=== PATIENT | female | born 1980 | race Caucasian/White ===

== ENCOUNTER 2019-03-17 05:06 | Emergency (ER) | payer BC ==
--- OUTSIDE RECORDS SUMMARY | 2019-03-17 05:08 | XMS REPORT ---
:1980 Author Organization eClinicalWorks Care Team Providers Name Role Phone Ryan Ramirez Provider Role Unavailable Allergies, Adverse Reactions, Alerts Substance Reaction Event Type N.K.D.A. Info Not Available Non Drug Allergy Problems Problem Type Condition Code Onset Dates Condition Status Assessment Left lateral epicondylitis M77.12 Active Problem Pain in joint of left elbow M25.522 Active Problem Seasonal allergic rhinitis, J30.2 Active unspecified trigger Problem Left lateral epicondylitis M77.12 Active Assessment Pain in joint of left elbow M25.522 Active Problem Anxiety F41.9 Active Problem Depression, unspecified depression F32.9 Active type Medications Medication Code Code Instructions Start End Status Dosage System Date Date BuPROPion HCl [facility] 48362761048 150 MG Oral Active not ER (XL) defined Fluoxetine NDC 0 Active not defined Fluoxetine HCl [facility] 06728494284 40 MG Oral Active not defined PredniSONE [facility] 01577624813 20 MG Orally BID Active 1 tablet Augmentin [facility] 47880529396 875-125 MG Active 1 tablet Orally every 12 hrs Metformin HCl [facility] 39685691066 500 MG Oral Active not defined Results No Known Results Summary Purpose eClinicalWorks Submission
[2019-03-17] MEDS ORDERED: dexAMETHasone 10 MG/ML VIAL ONE (06:25)
[2019-03-17] MEDS ORDERED: KETOROLAC 30 MG/ML INJ ONE (06:26)
[2019-03-17] MEDS ORDERED: NA CHLORIDE 0.9% 1,000 ML ONE (06:26)
[2019-03-17] MEDS ORDERED: MORPHINE 4 MG/ML SYR ONE (06:26)
[2019-03-17] MEDS ORDERED: ONDANSETRON 4 MG/2 ML VIAL ONE (06:28)
[2019-03-17 07:02] LABS: Absolute Lymphocytes (CBC) 2.6 K/uL (0.7-4.9); Basophils % 0.8 % (0-1.3); Hematocrit 39.9 % (36.0-45.0); Lymphocytes % 40.4 % (15.3-44.8); MPV 8.1 fL (7.6-11.3); RBC Red Blood Cell Count 4.48 M/uL (3.86-4.86)
[2019-03-17 07:19] LABS: ALT/SGPT 28 U/L (12-78); AST/SGOT 11 U/L (15-37); Albumin 4.1 g/dL (3.4-5.0); Alkaline Phosphatase 85 U/L (45-117); BUN Blood Urea Nitrogen 10 mg/dL (7-18); Bicarbonate 28 mmol/L (21-32); Bilirubin Total 0.3 mg/dL (0.2-1.0); Glucose Level 100 mg/dL (74-106); Potassium 3.8 mmol/L (3.5-5.1); Protein, Total 7.5 g/dL (6.4-8.2); Sodium Level 138 mmol/L (136-145); Troponin (Emerg Dept Use Only) < 0.02 ng/mL (0.0-0.045)
--- NOTE | 2019-03-17 07:27 | ER ---
Nurse's Notes [facility] Name: Mary Jo Benitez Age: 39 yrs Sex: Female : 1980 Arrival Date: 03/17/2019 Time: 05:07 Bed 6 Private MD: Diagnosis: Radiculopathy, cervical region;Type 2 diabetes mellitus Presentation: 03/17 05:24 Presenting complaint: Patient states: she woke up about 0130 this arm with pain in the aa1 right side of her neck that radiates down her R shoulder. States, "I can't even move my head because it hurts so bad.". Transition of care: patient was not received from another setting of care. Onset of symptoms was March 17, 2019 at 01:30. Risk Assessment: Do you want to hurt yourself or someone else? Patient reports no desire to harm self or others. Initial Sepsis Screen: Does the patient meet any 2 criteria? No. Patient's initial sepsis screen is negative. Does the patient have a suspected source of infection? No. Patient's initial sepsis screen is negative. Care prior to arrival: None. 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 - Social history:: Smoking status: Patient/guardian denies using tobacco. - Ebola Screening: : No symptoms or risks identified at this time. - Family history:: not pertinent. Screenin:28 Abuse screen: Denies threats or abuse. Denies injuries from another. Nutritional aa1 screening: No deficits noted. Tuberculosis screening: No symptoms or risk factors identified. Fall Risk None identified. Assessment: 05:28 General: Appears in no apparent distress. comfortable, Behavior is calm, cooperative, aa1 appropriate for age. Pain: Complains of pain in right side of neck Pain currently is 10 out of 10 on a pain scale. Neuro: Level of Consciousness is awake, alert, obeys commands, Oriented to person, place, time, situation, Moves all extremities. Full function Gait is steady. Respiratory: Airway is patent Respiratory effort is even, unlabored, Respiratory pattern is regular, symmetrical. GI: No signs and/or symptoms were reported involving the gastrointestinal system. : No signs and/or symptoms were reported regarding the genitourinary system. EENT: No signs and/or symptoms were reported regarding the EENT system. Derm: Skin is intact, is healthy with good turgor, Skin is pink, warm \\T\\ dry. Musculoskeletal: Circulation, motion, and sensation intact. Capillary refill < 3 seconds. 07:21 Reassessment: Patient and/or family updated on plan of care and expected duration. Pain vc level reassessed. Patient is alert, oriented x 3, equal unlabored respirations, skin warm/dry/pink. Patient states symptoms have improved. at bedside. Provider in the room at this time.. 17:33 Reassessment:. vc Vital Signs: 05:27 BP 137 / 99; Pulse 89; Resp 16; Temp 98.7; Pulse Ox 99% on R/A; Weight 90.72 kg; Height aa1 5 ft. 1 in. (154.94 cm); Pain 10/10; 06:20 BP 134 / 94; Pulse 77; Resp 16; Pulse Ox 98% on R/A; aa1 07:15 BP 127 / 78; Pulse 62; Resp 16; Pulse Ox 100% on R/A; Pain 0/10; vc 05:27 Body Mass Index 37.79 (90.72 kg, 154.94 cm) aa1 ED Course: 05:07 Patient arrived in ED. ds1 05:19 Mathieu Reardon MD is Attending Physician. buddy 05:24 Shilpa Villatoro, MATEO is Primary Nurse. aa1 05:26 Triage completed. aa1 05:27 Arm band placed on right wrist. aa1 05:28 Patient has correct armband on for positive identification. Bed in low position. Call aa1 light in reach. Pulse ox on. NIBP on. 06:31 CT C Spine In Process Unspecified. EDMS 06:40 Initial lab(s) drawn, by me, sent to lab. EKG done, by ED staff, reviewed by Mathieu Reardon MD. Inserted saline lock: 20 gauge in right antecubital area, using aseptic technique. Blood collected. 06:52 Kenneth Rondon [facility]-C [facility]. la1 06:57 Report given to MATEO Pond. aa1 07:01 Chest Single View XRAY In Process Unspecified. EDMS 07:20 Inserted saline lock: 22 gauge in left hand, using aseptic technique. vc 07:25 Magdaleno Mccoy MD is Referral Physician. la1 07:25 Anthony Liu MD is Referral Physician. la1 07:45 No provider procedures requiring assistance completed. IV discontinued, intact, vc bleeding controlled, No redness/swelling at site. Pressure dressing applied. 07:50 Primary Nurse role handed off by Shilpa Villatoro RN vc 07:50 Eli Ac RN is Primary Nurse. vc Administered Medications: 06:40 Drug: NS 0.9% 1000 ml Route: IV; Rate: 1 bolus; Site: right antecubital; aa1 06:40 Drug: Zofran 4 mg Route: IVP; Site: right antecubital; aa1 07:22 Follow up: Response: No adverse reaction vc 06:42 Drug: TORadol 30 mg Route: IVP; Site: right antecubital; aa1 07:23 Follow up: Response: No adverse reaction; Pain is decreased vc 06:43 Drug: Decadron - Dexamethasone 10 mg Route: IVP; Site: right antecubital; aa1 07:24 Follow up: Response: No adverse reaction; Pain is decreased vc 06:44 Drug: morphine 4 mg Route: IVP; Site: right antecubital; aa1 07:23 Follow up: Response: No adverse reaction; Pain is decreased vc Outcome: 07:25 Discharge ordered by . la1 07:48 Discharged to home ambulatory, with significant other. vc 07:48 Condition: improved 07:48 Discharge instructions given to patient, significant other, Instructed on discharge instructions, follow up and referral plans. no drinking with medication, no driving heavy equipment, medication usage, Demonstrated understanding of instructions, follow-up care, medications, Prescriptions given X 4. 07:50 Patient left the ED. vc Signatures: Dispatcher [employer] ED[facility] Shilpa Villatoro RN RN aa1 Anderson, Corey, MD MD cha Manzano, Radha ds1 Kenneth Rondon, PRODUCT SAFETY ASSOCIATE-C PRODUCT SAFETY ASSOCIATE-Cla1 Eli Ac, RN RN vc
--- NOTE | 2019-03-17 07:27 | EDPHYS ---
Physician Documentation [facility] Name: Mary Jo Benitez Age: 39 yrs Sex: Female : 1980 Arrival Date: 03/17/2019 Time: 05:07 Bed 6 Private MD: ENZO Physician Mathieu Reardon HPI: 03/17 06:16 This 39 yrs old Female presents to ER via Ambulatory with complaints of buddy Neck/Arm Pain. 06:16 The patient or guardian complains of pain. buddy 06:17 The patient or guardian complains of decreased range of motion, pain. The complaints buddy affect the right bicep, dorsal aspect of right forearm, right tricep and palmar aspect of right forearm. Context: The problem was sustained. Onset: The symptoms/episode began/occurred just prior to arrival, this morning. Treatment prior to arrival includes: no previous treatment. Modifying factors: The symptoms are alleviated by remaining still, the symptoms are aggravated by movement. Associated signs and symptoms: The patient has no apparent associated signs or symptoms. Severity of symptoms: At their worst the symptoms were mild, moderate, in the emergency department the symptoms are unchanged. The patient has not experienced similar symptoms in the past. 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 - Social history:: Smoking status: Patient/guardian denies using tobacco. - Ebola Screening: : No symptoms or risks identified at this time. - Family history:: not pertinent. ROS: 06:17 Constitutional: Negative for fever, chills, and weight loss, Eyes: Negative for injury, buddy pain, redness, and discharge, ENT: Negative for injury, pain, and discharge, Cardiovascular: Negative for chest pain, palpitations, and edema, Respiratory: Negative for shortness of breath, cough, wheezing, and pleuritic chest pain, Abdomen/GI: Negative for abdominal pain, nausea, vomiting, diarrhea, and constipation, Back: Negative for injury and pain, : Negative for injury, bleeding, discharge, and swelling, MS/Extremity: Negative for injury and deformity, Skin: Negative for injury, rash, and discoloration, Neuro: Negative for headache, weakness, numbness, tingling, and seizure, Psych: Negative for depression, anxiety, suicide ideation, homicidal ideation, and hallucinations, Allergy/Immunology: Negative for hives, rash, and allergies, Endocrine: Negative for neck swelling, polydipsia, polyuria, polyphagia, and marked weight changes, Hematologic/Lymphatic: Negative for swollen nodes, abnormal bleeding, and unusual bruising. 06:17 Neck: Positive for pain with movement, pain at rest. Exam: 06:17 Constitutional: This is a well developed, well nourished patient who is awake, alert, buddy and in no acute distress. Head/Face: Normocephalic, atraumatic. Eyes: Pupils equal round and reactive to light, extra-ocular motions intact. Lids and lashes normal. Conjunctiva and sclera are non-icteric and not injected. Cornea within normal limits. Periorbital areas with no swelling, redness, or edema. ENT: Nares patent. No nasal discharge, no septal abnormalities noted. Tympanic membranes are normal and external auditory canals are clear. Oropharynx with no redness, swelling, or masses, exudates, or evidence of obstruction, uvula midline. Mucous membranes moist. Chest/axilla: Normal chest wall appearance and motion. Nontender with no deformity. No lesions are appreciated. Cardiovascular: Regular rate and rhythm with a normal S1 and S2. No gallops, murmurs, or rubs. Normal PMI, no JVD. No pulse deficits. Respiratory: Lungs have equal breath sounds bilaterally, clear to auscultation and percussion. No rales, rhonchi or wheezes noted. No increased work of breathing, no retractions or nasal flaring. Abdomen/GI: Soft, non-tender, with normal bowel sounds. No distension or tympany. No guarding or rebound. No evidence of tenderness throughout. Back: No spinal tenderness. No costovertebral tenderness. Full range of motion. Female : Normal external genitalia. Skin: Warm, dry with normal turgor. Normal color with no rashes, no lesions, and no evidence of cellulitis. MS/ Extremity: Pulses equal, no cyanosis. Neurovascular intact. Full, normal range of motion. Neuro: Awake and alert, GCS 15, oriented to person, place, time, and situation. Cranial nerves II-XII grossly intact. Motor strength 5/5 in all extremities. Sensory grossly intact. Cerebellar exam normal. Normal gait. Psych: Awake, alert, with orientation to person, place and time. Behavior, mood, and affect are within normal limits. 06:17 Neck: External neck: is normal, no acute changes, C-spine: appears grossly normal, no acute changes, Thyroid: appears normal, no acute changes, Trachea: is midline with no obvious abnormalities, no acute changes, ROM/movement: is normal, no acute changes, Lymph nodes: no appreciated lymphadenopathy. Vital Signs: 05:27 BP 137 / 99; Pulse 89; Resp 16; Temp 98.7; Pulse Ox 99% on R/A; Weight 90.72 kg; Height aa1 5 ft. 1 in. (154.94 cm); Pain 10/10; 06:20 BP 134 / 94; Pulse 77; Resp 16; Pulse Ox 98% on R/A; aa1 07:15 BP 127 / 78; Pulse 62; Resp 16; Pulse Ox 100% on R/A; Pain 0/10; vc 05:27 Body Mass Index 37.79 (90.72 kg, 154.94 cm) aa1 MDM: 05:19 Patient medically screened. [facility] 06:23 Data reviewed: vital signs, nurses notes, lab test result(s), EKG, radiologic studies, [facility] CT scan, plain films. 03/17 06:16 Order name: CBC with Diff; Complete Time: 07:15 [facility] 03/17 06:16 Order name: Comprehensive Metabolic Panel; Complete Time: 07:21 [facility] 03/17 06:16 Order name: CT C Spine [facility] 03/17 06:16 Order name: Chest Single View XRAY [facility] 03/17 06:16 Order name: Troponin (emerg Dept Use Only); Complete Time: 07:21 [facility] 03/17 06:16 Order name: EKG; Complete Time: 06:16 [facility] 03/17 06:16 Order name: EKG - Nurse/Tech; Complete Time: 06:50 buddy Administered Medications: 06:40 Drug: NS 0.9% 1000 ml Route: IV; Rate: 1 bolus; Site: right antecubital; aa1 06:40 Drug: Zofran 4 mg Route: IVP; Site: right antecubital; aa1 07:22 Follow up: Response: No adverse reaction vc 06:42 Drug: TORadol 30 mg Route: IVP; Site: right antecubital; aa1 07:23 Follow up: Response: No adverse reaction; Pain is decreased vc 06:43 Drug: Decadron - Dexamethasone 10 mg Route: IVP; Site: right antecubital; aa1 07:24 Follow up: Response: No adverse reaction; Pain is decreased vc 06:44 Drug: morphine 4 mg Route: IVP; Site: right antecubital; aa1 07:23 Follow up: Response: No adverse reaction; Pain is decreased vc Disposition: 03/17/19 07:25 Discharged to Home. Impression: Radiculopathy, cervical region, Type 2 diabetes mellitus. - Condition is Stable. - Discharge Instructions: Cervical Radiculopathy, Type 2 Diabetes Mellitus, Diagnosis, Adult, Type 2 Diabetes Mellitus, Diagnosis, Adult, [id number], Cervical Radiculopathy, [id number], Radicular Pain. - Prescriptions for dexamethasone 2 mg Oral tablet - take 1 tablet by ORAL route 2 times per day; 10 tablet. Ibuprofen 600 mg Oral Tablet - take 1 tablet by ORAL route every 6 hours As needed take with food; 21 tablet. Tylenol- Codeine #3 300-30 mg Oral Tablet - take 2 tablet by ORAL route every 6 hours As needed; 30 tablet. Valium 5 mg Oral Tablet - take 1 tablet by ORAL route every 8 hours As needed; 20 tablet. - Family Work Release, Medication Reconciliation Form, Thank You Letter, Antibiotic Education, Prescription Opioid Use, Work release form form. - Follow up: Private Physician; When: 2 - 3 days; Reason: Recheck today's complaints, Continuance of care, Re-evaluation by your physician. Follow up: Magdaleno Mccoy; When: 2 - 3 days; Reason: Recheck today's complaints, Re-evaluation by your physician. Follow up: Anthony Liu; When: 2 - 3 days; Reason: Recheck today's complaints, Re-evaluation by your physician. - Problem is new. - Symptoms have improved. Signatures: Dispatcher [employer] Shilpa Coronel, RN RN aa1 Mathieu Reardon MD MD cha Attema, Lee, ALARM INSTALLATION TECHNICIAN-C ALARM INSTALLATION TECHNICIAN-Cla1 Eli Ac, MATEO RN vc Corrections: (The following items were deleted from the chart) 07:50 07:25 03/17/2019 07:25 Discharged to Home. Impression: Radiculopathy, cervical region; vc Type 2 diabetes mellitus. Condition is Stable. Discharge Instructions: Cervical Radiculopathy, Type 2 Diabetes Mellitus, Diagnosis, Adult, Type 2 Diabetes Mellitus, Diagnosis, Adult, [id number], Cervical Radiculopathy, [id number], Radicular Pain. Prescriptions for dexamethasone 2 mg Oral tablet - take 1 tablet by ORAL route 2 times per day; 10 tablet, Ibuprofen 600 mg Oral Tablet - take 1 tablet by ORAL route every 6 hours As needed take with food; 21 tablet, Tylenol-Codeine #3 300-30 mg Oral Tablet - take 2 tablet by ORAL route every 6 hours As needed; 30 tablet, Valium 5 mg Oral Tablet - take 1 tablet by ORAL route every 8 hours As needed; 20 tablet. and Forms are Medication Reconciliation Form, Thank You Letter, Antibiotic Education, Prescription Opioid Use. Follow up: Private Physician; When: 2 - 3 days; Reason: Recheck today's complaints, Continuance of care, Re-evaluation by your physician. Follow up: Magdaleno Mccoy; When: 2 - 3 days; Reason: Recheck today's complaints, Re-evaluation by your physician. Follow up: Anthony Liu; When: 2 - 3 days; Reason: Recheck today's complaints, Re-evaluation by your physician. Problem is new. Symptoms have improved. la1
[2019-03-17 08:07] VITALS: TEMP 98.7
[2019-03-17 08:08] VITALS: BP 134/94; O2SAT 98
--- NOTE | 2019-03-17 08:08 | EKG ---
Test Date: 2019-03-17 Test Time: 06:46:28 Plater Helper: THALIA MEASUREMENT RESULTS: Intervals: Rate: 74 SC: 150 QRSD: 74 QT: 386 QTc: 428 [place]: P: 43 SC: 150 QRS: 30 T: 18 INTERPRETIVE STATEMENTS: Normal sinus rhythm Cannot rule out Anterior infarct, age undetermined Abnormal ECG No previous ECG available for comparison Electronically Signed On 03-17-19 08:08:04 FLY WINDER by Nixon Pena
--- NOTE | 2019-03-17 08:45 | RAD REPORT ---
EXAM DESCRIPTION: RAD - Chest Single View - 03/17/2019 7:01 am CLINICAL HISTORY: CHEST PAIN Chest pain. COMPARISON: No comparisons FINDINGS: Portable technique limits examination quality. The lungs are grossly clear. The heart is normal in size. No displaced fractures. IMPRESSION: No acute intrathoracic process suspected.
--- NOTE | 2019-03-17 09:37 | RAD REPORT ---
EXAM DESCRIPTION: CT Cervical Spine Without Intravenous Contrast CLINICAL HISTORY: The patient is 39 years old and is Female; PAIN TECHNIQUE: Axial computed tomography images of the cervical spine without intravenous contrast. Sa gittal and coronal reformatted images were created and reviewed. This CT exam was performed using o ne or more of the following dose reduction techniques: automated exposure control, adjustment of th e mA and/or kV according to patient size, and/or use of iterative reconstruction technique. COMPARISON: No relevant prior studies available. FINDINGS: Vertebrae: Straightening of cervical spine may be positional or due to muscle spasm. Mild disc height loss and endplate spurring at C4-C5 C5-C6 and C6-7 and posterior disc bulgi ng resulting in varying degrees of central canal and foraminal stenosis. No acute fracture. Discs/spinal canal/neural foramina: See above. Soft tissues: Unremarkable. IMPRESSION: 1. No acute osseous abnormality. No fracture or subluxation. 2. Straightening of cervical spine may be positional or due to muscle spasm. 3. Mild disc height loss and endplate spurring at C4-C5 C5-C6 and C6-7 and posterior disc bulging r esulting in varying degrees of central canal and foraminal stenosis. MRI may be obtained for better evaluation. Electronically signed by: Sebas Soriano MD 03/17/2019 6:40 AM CATH LABORATORY TECHNICIAN Due to temporary technical issues with the PACS/Fluency reporting system, reports are being signed by the in house radiologist as a courtesy to ensure prompt reporting. The interpreting radiologist is f ully responsible for the content of the report.
== END 2019-03-17 07:50 | disposition home or self-care (01) ==
LOC: ER 05:06
DX: M54.12 Radiculopathy, cervical region (principal); E11.9 Type 2 diabetes mellitus without complications; F41.9 Anxiety disorder, unspecified; F32.9 Major depressive disorder, single episode, unspecified
CPT/HCPCS: 93005; 85025; 36415; 84484; 80053; 72125; 71045; 96375; 96374; 99284; J1100; J7030; J2405

== ENCOUNTER 2019-03-19 18:05 | Emergency (ER) | payer BC ==
--- OUTSIDE RECORDS SUMMARY | 2019-03-19 18:07 | XMS REPORT ---
[...] Status Dosage System Date Date BuPROPion HCl [facility] 99094008331 150 MG Oral Active not ER (XL) defined Fluoxetine NDC 0 Active not defined Fluoxetine HCl [facility] 11139332829 40 MG Oral Active not defined PredniSONE [facility] 28481159106 20 MG Orally BID Active 1 tablet Augmentin [facility] 39745440507 875-125 MG Active 1 tablet Orally every 12 hrs Metformin HCl [facility] 18674688662 500 MG Oral Active not defined Results No Known Results Summary Purpose eClinicalWorks Submission
--- NOTE | 2019-03-19 19:47 | ER ---
Nurse's Notes [facility] Name: Mary Jo Benitez Age: 39 yrs Sex: Female : 1980 Arrival Date: 03/19/2019 Time: 18:06 Bed 30 Private MD: Diagnosis: Radiculopathy, cervical region Presentation: 03/19 18:55 Presenting complaint: Patient states: RIGHT neck/shoulder pain, seen here recently, sr5 "said I have a bulging disc and to come back if the pain got worse". Pt crying in triage. Transition of care: patient was not received from another setting of care. Onset of symptoms was March 17, 2019. Risk Assessment: Do you want to hurt yourself or someone else? Patient reports no desire to harm self or others. Initial Sepsis Screen: Does the patient meet any 2 criteria? No. Patient's initial sepsis screen is negative. Care prior to arrival: None. 18:55 Method Of Arrival: Ambulatory sr5 18:55 Acuity: NIKOLAS 4 sr5 19:30 Initial Sepsis Screen: Does the patient have a suspected source of infection? No. jv1 Patient's initial sepsis screen is negative. Triage Assessment: 18:57 General: Appears uncomfortable, Behavior is cooperative. Pain: Complains of pain in sr5 neck Pain currently is 10 out of 10 on a pain scale. Neuro: Level of Consciousness is awake, alert, obeys commands, Oriented to person, place, time, situation, Gait is steady. Cardiovascular: Patient's skin is warm and dry. Respiratory: Respiratory effort is even, unlabored, Respiratory pattern is regular, symmetrical. 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 - Social history:: Smoking status: Patient/guardian denies using tobacco, Patient/guardian denies using. - Family history:: not pertinent. - Ebola Screening: : No symptoms or risks identified at this time. - Hospitalizations: : No recent hospitalization is reported. Screenin:30 Abuse screen: Denies threats or abuse. Nutritional screening: No deficits noted. jv1 Tuberculosis screening: No symptoms or risk factors identified. 19:30 Fall Risk None identified. jv1 Assessment: 19:19 General: Appears in no apparent distress. uncomfortable, well groomed, unkempt. Pain: jv1 Complains of pain in right neck that radiates to right arm down to her fingers Pain currently is 9 out of 10 on a pain scale. Quality of pain is described as aching, Pain began Is intermittent. Neuro: Level of Consciousness is awake, alert, obeys commands, Oriented to person, place, time, situation, Morale Officer are equal bilaterally. Cardiovascular: Denies chest pain, Heart tones S1 S2 Capillary refill < 3 seconds Pulses are all present. Respiratory: Airway is patent Respiratory effort is even, unlabored, Respiratory pattern is regular, Breath sounds are clear bilaterally. GI: Abdomen is round Bowel sounds present X 4 quads. Abd is soft and non tender X 4 quads. : No signs and/or symptoms were reported regarding the genitourinary system. EENT: No signs and/or symptoms were reported regarding the EENT system. Derm: No signs and/or symptoms reported regarding the dermatologic system. Musculoskeletal: Capillary refill < 3 seconds, Range of motion: intact in all extremities, Reports pain in right neck, radiating down to her right arm to her fingers as verbalized. 20:00 Reassessment: Patient appears in no apparent distress at this time. Patient is alert, jv1 oriented x 3, equal unlabored respirations, skin warm/dry/pink. Vital Signs: 18:57 BP 128 / 76; Pulse 77; Resp 18; Temp 98.3; Pulse Ox 100% ; Weight 95.25 kg (R); Height sr5 5 ft. 1 in. (154.94 cm); Pain 10/10; 19:17 BP 128 / 77; Pulse 61; Resp 18; Temp 98.2; Pulse Ox 98% ; Pain 9/10; jv1 20:00 BP 125 / 70; Pulse 60; Resp 18; Temp 98; Pulse Ox 98% ; Pain 8/10; jv1 18:57 Body Mass Index 39.68 (95.25 kg, 154.94 cm) 5 ED Course: 18:06 Patient arrived in ED. as 18:57 Triage completed. sr5 18:57 Arm band placed on left wrist. sr5 19:30 Patient has correct armband on for positive identification. Fall risk band placed. Bed jv1 in low position. Call light in reach. 19:32 Kalpesh Patel MD is Attending Physician. rn 20:15 No provider procedures requiring assistance completed. jv1 20:15 Patient did not have IV access during this emergency room visit. jv1 Administered Medications: 20:00 Drug: TORadol - Ketorolac 15 mg Route: IM; Site: right gluteus; jv1 20:15 Follow up: Response: No adverse reaction; Pain is decreased jv1 20:00 Drug: Decadron 10 mg Route: IM; Site: left gluteus; jv1 20:15 Follow up: Response: No adverse reaction jv1 20:01 Drug: Barto 10 mg-325 mg 1 tabs Route: PO; jv1 20:15 Follow up: Response: No adverse reaction jv1 Outcome: 19:30 Condition: stable jv1 19:47 Discharge ordered by . rn 20:17 Discharged to home ambulatory. jv1 20:17 Condition: improved 20:17 Discharge instructions given to patient, family. 20:21 Patient left the ED. jv1 Signatures: Andie Moralez Roman, MD MD rn Resecker, Sam RN RN sr5 Jamee Burks RN RN jv1 Corrections: (The following items were deleted from the chart) 19:36 18:57 Allergies: No Known Allergies; sr5 jv1
--- NOTE | 2019-03-19 19:48 | EDPHYS ---
Physician Documentation [facility] Name: Mary Jo Benitez Age: 39 yrs Sex: Female : 1980 Arrival Date: 03/19/2019 Time: 18:06 Bed 30 Private MD: ED Physician Kalpesh Patel HPI: 03/19 19:43 This 39 yrs old Female presents to ER via Ambulatory with complaints of Neck rn Pain, >24Hrs Old, Arm Pain. 19:43 The patient or guardian complains of pain. The patient or guardian complains of pain, rn that is chronic. The symptoms are located. Onset: The symptoms/episode began/occurred 1 week(s) ago. Associated signs and symptoms: Pertinent positives: This patient does not have any pertinent positive signs or symptoms associated with neck pain. Pertinent negatives: bladder incontinence, bowel incontinence, nausea, numbness, tingling, vomiting, weakness. The pain radiates to the right arm. Modifying factors: The symptoms are alleviated by nothing. the symptoms are aggravated by movement. Severity of symptoms: At their worst the symptoms were mild, in the emergency department the symptoms are unchanged. The patient has experienced similar episodes in the past. Reports neck pain, radiates down right arm, seen here 2 days ago, given steroids/pain meds/muscle relaxer, states only helps a little, no injury, has not had a chance to f/u with back specialist. No fever. Has had chronic neck problems. . 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 - Social history:: Smoking status: Patient/guardian denies using tobacco, Patient/guardian denies using. - Family history:: not pertinent. - Ebola Screening: : No symptoms or risks identified at this time. - Hospitalizations: : No recent hospitalization is reported. ROS: 19:43 Constitutional: Negative for fever, chills, and weight loss, Eyes: Negative for injury, rn pain, redness, and discharge, Neck: + neck pain Cardiovascular: Negative for chest pain, palpitations, and edema, Respiratory: Negative for shortness of breath, cough, wheezing, and pleuritic chest pain, Abdomen/GI: Negative for abdominal pain, nausea, vomiting, diarrhea, and constipation, MS/Extremity: Negative for injury and deformity, Skin: Negative for injury, rash, and discoloration, Neuro: Negative for headache, weakness, and seizure. Exam: 19:43 Constitutional: This is a well developed, well nourished patient who is awake, alert, rn and in no acute distress. Head/Face: Normocephalic, atraumatic. Neck: Trachea midline, no thyromegaly or masses palpated, and no cervical lymphadenopathy. Supple, full range of motion without nuchal rigidity, or vertebral point tenderness. No Meningismus. Skin: Warm, dry with normal turgor. Normal color with no rashes, no lesions, and no evidence of cellulitis. MS/ Extremity: Pulses equal, no cyanosis. Neurovascular intact. Full, normal range of motion. Equal circumference. Neuro: Awake and alert, GCS 15, oriented to person, place, time, and situation. Cranial nerves II-XII grossly intact. Motor strength 5/5 in all extremities. Sensory grossly intact. Cerebellar exam normal. Vital Signs: 18:57 BP 128 / 76; Pulse 77; Resp 18; Temp 98.3; Pulse Ox 100% ; Weight 95.25 kg (R); Height sr5 5 ft. 1 in. (154.94 cm); Pain 10/10; 19:17 BP 128 / 77; Pulse 61; Resp 18; Temp 98.2; Pulse Ox 98% ; Pain 9/10; jv1 20:00 BP 125 / 70; Pulse 60; Resp 18; Temp 98; Pulse Ox 98% ; Pain 8/10; jv1 18:57 Body Mass Index 39.68 (95.25 kg, 154.94 cm) sr5 MDM: 19:32 Patient medically screened. rn 19:43 Differential diagnosis: Cervical Disc Herniation Cervical Discogenic Pain Cervical rn Facet Syndrome Cervical Raiculopathy cervical strain, Spondylosis torticollis. Data reviewed: vital signs, nurses notes, old medical records, and as a result, I will discharge patient. Counseling: I had a detailed discussion with the patient and/or guardian regarding: the historical points, exam findings, and any diagnostic results supporting the discharge/admit diagnosis, the need for outpatient follow up, to return to the emergency department if symptoms worsen or persist or if there are any questions or concerns that arise at home. Response to treatment: the patient's symptoms have mildly improved after treatment, and as a result, I will discharge patient. Special discussion: I discussed with the patient/guardian in detail that at this point there is no indication for admission to the hospital. It is understood, however, that if the symptoms persist or worsen the patient needs to return immediately for re-evaluation. Administered Medications: 20:00 Drug: TORadol - Ketorolac 15 mg Route: IM; Site: right gluteus; jv1 20:15 Follow up: Response: No adverse reaction; Pain is decreased jv1 20:00 Drug: Decadron 10 mg Route: IM; Site: left gluteus; jv1 20:15 Follow up: Response: No adverse reaction jv1 20:01 Drug: Hurst 10 mg-325 mg 1 tabs Route: PO; jv1 20:15 Follow up: Response: No adverse reaction jv1 Disposition: 03/19/19 19:47 Discharged to Home. Impression: Radiculopathy, cervical region. - Condition is Stable. - Discharge Instructions: Cervical Radiculopathy. - Medication Reconciliation Form, Thank You Letter, Antibiotic Education, Prescription Opioid Use form. - Follow up: Private Physician; When: As needed; Reason: Recheck today's complaints, Re-evaluation by your physician. - Problem is chronic. - Symptoms have improved. Signatures: Kalpesh Patel MD MD rn Hernando Mcdonnell RN RN sr5 Jamee Burks RN RN jv1 Corrections: (The following items were deleted from the chart) 19:36 18:57 Allergies: No Known Allergies; sr5 jv1 20:21 19:47 03/19/2019 19:47 Discharged to Home. Impression: Radiculopathy, cervical region. jv1 Condition is Stable. Forms are Medication Reconciliation Form, Thank You Letter, Antibiotic Education, Prescription Opioid Use. Follow up: Private Physician; When: As needed; Reason: Recheck today's complaints, Re-evaluation by your physician. Problem is chronic. Symptoms have improved. rn
[2019-03-19] MEDS ORDERED: dexAMETHasone 10 MG/ML VIAL ONE (19:51)
[2019-03-19] MEDS ORDERED: KETOROLAC 30 MG/ML INJ ONE (19:52)
[2019-03-19] MEDS ORDERED: HYDROCODONE/APAP 10/325 TAB ONE (19:52)
[2019-03-19 20:44] VITALS: O2SAT 98
[2019-03-19 20:46] VITALS: BP 125/70; TEMP 98
== END 2019-03-19 20:21 | disposition home or self-care (01) ==
LOC: ER 18:05
DX: M54.12 Radiculopathy, cervical region (principal); E11.9 Type 2 diabetes mellitus without complications; F32.9 Major depressive disorder, single episode, unspecified; F41.9 Anxiety disorder, unspecified
CPT/HCPCS: 96372; 99283; J1100